=== PATIENT | male | born 2000 | race Caucasian/White ===

== ENCOUNTER 2024-11-15 14:00 | Emergency (ER) | payer BC ==
[2024-11-15 14:34] LABS: Sqamous Epithelial <5 /HPF (None Seen); Urine Culture Reflex Order NOT NEEDED; Urine Microscopic Reflex YN ORDER UMIC
[2024-11-15 17:32] LABS: Absolute Lymphocytes (CBC) 2.0 K/uL (0.7-4.9); Hematocrit 47.7 % (39.6-49.0); Hemoglobin 16.5 g/dL (13.6-17.9); MCH 28.5 pg (27.0-35.0); MCHC 34.6 g/dL (32.0-36.0); MCV 82.5 fL (80-100); MPV 7.8 fL (7.6-11.3); Nucleated RBC Absolute Count 0.0 (0-0); Nucleated Red Blood Cells % 0.1 % (0-0); RBC Red Blood Cell Count 5.78 M/uL (4.33-5.43); White Blood Count 7.90 thou/uL (4.3-10.9)
[2024-11-15 17:50] LABS: ALT/SGPT 52.0 U/L (16-61); AST/SGOT 27.0 U/L (15-37); Albumin 4.5 g/dL (3.4-5.0); Albumin/Globulin Ratio 1.3 (1.1-1.8); Alkaline Phosphatase 49.0 U/L (45-117); Anion Gap 10.6 mEq/L (5.0-15.0); BUN Blood Urea Nitrogen 13.0 mg/dL (7-18); Globulin 3.5 g/dL (2.3-3.5); Glucose Level 111.0 mg/dL (74-106); Potassium 3.6 mEq/L (3.5-5.1)
--- NOTE | 2024-11-15 19:17 | RAD REPORT ---
EXAMINATION: CT ABDOMEN AND PELVIS WITH CONTRAST CLINICAL INDICATION: Abdominal pain TECHNIQUE: CT abdomen and pelvis was performed, after the administration of 100 cc Isovue-300.. Sagit ashley and coronal reconstructions were obtained. One or more of the following dose reduction techniques were used: Automated exposure control, adjustment of the mA and kV according to patient si ze, and iterative reconstruction. Unless otherwise specified, incidental findings do not require dedicated imaging follow-up. [id number]. Oral contrast was not given which limits evaluation of bowel and appendix. COMPARISON: .None FINDINGS: Liver, spleen, pancreas, adrenals and kidneys appear unremarkable No evidence of diverticulitis. The appendix is normal caliber. No stranding within the adjacent fat. It does contain a 6 mm stone. The bladder is distended. Small umbilical hernia : IMPRESSION: Bladder distention 6 mm appendicolith. No evidence of acute appendicitis
[2024-11-15] MEDS ORDERED: DIAZEPAM 10 MG/2 ML INJ SYRINGE ONE ×3 (19:38→20:52)
[2024-11-15] MEDS ORDERED: LIDOCAINE VISCOUS 2% 10ML ORAL SOLN ONE (19:38)
--- NOTE | 2024-11-15 21:24 | EDPHYS ---
Physician Documentation [facility] Name: Dominic Lunsford Age: 24 yrs Sex: Male : 2000 Arrival Date: 11/15/2024 Time: 14:00 Bed 13 Private MD: ED Physician Vishnu Quiroz HPI: 11/15 19:29 This 24 yrs old Male presents to ER via Ambulatory with complaints of Urinary dr5 Retention. 19:29 Onset: The symptoms/episode began/occurred acutely. Patient is a 24-year-old male with dr5 no past with history coming in with urinary retention and burning with urination as well as hesitancy. Patient states that when he has intercourse several times a day this happens. Patient reports this been going on on and off for the past year. Patient went to urgent care yesterday and was prescribed antibiotics for urinary tract infection. Patient states that he is not able to void all the way.. Historical: - Allergies: 14:13 No Known Allergies; iw - Home Meds: 14:13 None [Active]; iw - PMHx: 14:13 None; iw - PSHx: 14:13 knee; iw - Immunization history:: Adult Immunizations not up to date. - Infectious Disease History:: Denies. - Social history:: Smoking status: Reported history of juuling and/or vaping. ROS: 19:29 Constitutional: as per hpi dr5 Exam: 19:29 Constitutional: This is a well developed, well nourished patient who is awake, alert, dr5 and in no acute distress. Head/Face: Normocephalic, atraumatic. Eyes: Pupils equal round and reactive to light, extra-ocular motions intact. Lids and lashes normal. Conjunctiva and sclera are non-icteric and not injected. Cornea within normal limits. Periorbital areas with no swelling, redness, or edema. Neck: Trachea midline, no thyromegaly or masses palpated, and no cervical lymphadenopathy. Supple, full range of motion without nuchal rigidity, or vertebral point tenderness. No Meningismus. Chest/axilla: Normal chest wall appearance and motion. Nontender with no deformity. No lesions are appreciated. Cardiovascular: Regular rate and rhythm with a normal S1 and S2. Normal PMI, no JVD. No pulse deficits. Respiratory: Lungs have equal breath sounds bilaterally, clear to auscultation. No rales, rhonchi or wheezes noted. No increased work of breathing, no retractions or nasal flaring. Abdomen/GI: Soft, non-tender, non-distended. Mild tenderness to suprapubic area. Back: No spinal tenderness. No costovertebral tenderness. Full range of motion. Skin: Warm, dry with normal turgor. Normal color with no rashes, no lesions, and no evidence of cellulitis. MS/ Extremity: Pulses equal, no cyanosis. Neurovascular intact. Full, normal range of motion. Neuro: Awake and alert, GCS 15, oriented to person, place, time, and situation. Cranial nerves II-XII grossly intact. Motor strength 5/5 in all extremities. Sensory grossly intact. Cerebellar exam normal. Normal gait. Vital Signs: 14:11 BP 157 / 101; Pulse 94; Resp 16; Pulse Ox 99% on R/A; Weight 102.06 kg; Height 5 ft. 10 iw in. ; 16:00 BP 141 / 74; Pulse 79; Resp 16; Pulse Ox 99% ; me1 17:00 BP 128 / 83; Pulse 82; Resp 15; Pulse Ox 98% ; me1 18:00 BP 134 / 66; Pulse 70; Resp 15; Pulse Ox 97% ; me1 19:00 BP 141 / 82; Pulse 65; Resp 15; Pulse Ox 99% ; me1 20:00 BP 136 / 87; Pulse 80; Resp 15; Pulse Ox 97% ; me1 21:00 BP 145 / 81; Pulse 92; Resp 16; Pulse Ox 99% ; me1 21:44 BP 137 / 91; Pulse 88; Resp 16; Pulse Ox 98% ; me1 11/16 00:56 BP 122 / 77; Pulse 84; Resp 18; Pulse Ox 99% on R/A; kd3 00:57 Temp 98.2(O); kd3 11/15 14:11 Body Mass Index 32.28 (102.06 kg, 177.8 cm) iw Procedures: 11/15 21:00 Performed Post Void Bladder Scanner. Bladder Scanner utilized after attempted void with dr5 500cc in bladder.. MDM: 14:06 Medical Screening Exam initiated dr5 20:57 Differential diagnosis: viral Infection, UTI, Urethral stricture, anemia, acute kidney dr5 injury, urinary tract infection, pyelonephritis. Data reviewed: vital signs, nurses notes, lab test result(s), CBC, white blood cell count, hemoglobin, hematocrit, platelets, electrolytes, sodium, potassium, chloride, serum bicarbonate, BUN, creatinine, serum glucose, urinalysis, radiologic studies, CT scan. Consideration of Admission/Observation Patient was admitted/placed on observation. I considered the following discharge prescriptions or medication management in the emergency department I discussed and recommended Over The Counter medications, Medications were administered in the Emergency Department. See MAR. Historians other than the Patient: Spouse/Significant Other: Significant other. Care significantly affected by the following Social Determinants of Health: Poor access to healthcare and/or lack of insurance, Poor access to transportation, Problems related to employment. Counseling: I had a detailed discussion with the patient and/or guardian regarding the historical points, exam findings, and any diagnostic results supporting the discharge/admit diagnosis, the presence of at least one elevated blood pressure reading (>120/80) during this emergency department visit, lab results, radiology results, the need to transfer to another facility, for higher level of care, [facility] does not immediately have the required specialist, We do not have urology service. Medication response: Valium. Special discussion: Based on the history and exam findings, there is no indication for further emergent testing or inpatient evaluation. I discussed with the patient/guardian the need to see the urologist for further evaluation of the symptoms. ED course: Attempted Akbar catheter on 3 different attempts with 16 Marshallese, 16 Marshallese coude, and 12 Marshallese coude with no success. Bladder scan postvoid revealed 500 cc. Will transfer patient for admission due to not having urology due to likely urethral stricture.. 21:07 Management of patient was discussed with the following: Custodial Supervisor: Urology (Dr. cristina Ernst with [facility]) who accepted patient. Pending hospitalist. 21:43 ED course: Spoke with hospitalist at [facility] - concerned urologist (Sujata) will dr5 not come in to take care of patient. Transfer center is connecting Sujata with hospitalist to discuss case.. 21:51 ED course: Patient was accepted to hospital.. cristina 11/15 14:17 Order name: UA Rfx Gordy Cult if indicated; Complete Time: 14:58 dr5 11/15 16:47 Order name: CBC with Diff; Complete Time: 17:46 dr5 11/15 16:47 Order name: CMP; Complete Time: 18:07 dr5 11/15 16:47 Order name: CT Abd/Pelvis - IV Contrast Only; Complete Time: 19:18 dr5 11/15 14:17 Order name: Bladder Scanner; Complete Time: 15:39 dr5 Administered Medications: 19:45 Drug: Diazepam IVP 5 mg IVP once Route: IVP; Site: right antecubital; vc1 21:43 Follow up: Response: No adverse reaction; Pain is decreased me1 19:48 Drug: Viscous Lidocaine Mucous Membrane Liquid (4 %) 4 ml Mucous Membrane once; to vc1 bedside {Note: to penis.} Route: Mucous Membrane; 21:43 Follow up: Response: No adverse reaction; Pain is decreased me1 20:56 Drug: Diazepam IVP 5 mg IVP once Route: IVP; Site: right antecubital; me1 21:43 Follow up: Response: No adverse reaction; Pain is decreased me1 Disposition Summary: 11/15/24 21:24 Transfer Ordered Notes: Transfer Location: [facility] dr5 Reason: Higher level of care dr5 Condition: Stable dr5 Problem: new dr5 Symptoms: have worsened dr5 Accepting Physician: [facility](11/16/24 00:57) kd3 Diagnosis - Other retention of urine dr5 Forms: - Medication Reconciliation Form dr5 - SBAR form dr5 Addendum: 11/17/2024 13:33 Co-signature as Attending Physician, Vishnu Quiroz MD I agree with the assessment and c ferraro plan of care. Signatures: Dispatcher [employer] Vishnu Baptiste MD MD cha Williams, Irene, RN RN iw Doucette, Kyli, RN RN kd3 Eve Potter RN RN vc1 Noemi Kern RN RN me1 Don Madrid, CERTIFIED REAL ESTATE APPRAISER-C CERTIFIED REAL ESTATE APPRAISER-Cdr5 Corrections: (The following items were deleted from the chart) 11/15 21:44 20:57 ED course: Attempted Akbar catheter on 3 different attempts with 16 Marshallese, 16 dr5 Marshallese coud, and 12 Marshallese coud with no success. Bladder scan postvoid revealed 500 cc. Will transfer patient for admission due to not having urology due to likely urethral stricture.. dr5 21:44 21:43 ED course: Spoke with hospitalist at [facility] - concerned urologist (Sujata) dr5 will not come in to take care of patient. Transfer center is connecting Sujata with hospitalist.. dr5 11/16 00:57 11/15 21:24 [facility] dr5 kd3
--- NOTE | 2024-11-15 21:24 | ER ---
Nurse's Notes [facility] Name: Dominic Lunsford Age: 24 yrs Sex: Male : 2000 Arrival Date: 11/15/2024 Time: 14:00 Bed 13 Private MD: Diagnosis: Other retention of urine Presentation: 11/15 14:11 Chief complaint: Patient states: has been having burning with urination on and off for iw past year , it seems worse after intercourse, this episode started a couple days ago , was seen at urgent care yesterday , started on cipro , no pain in kidneys. Coronavirus screen: At this time, the client does not indicate any symptoms associated with coronavirus-19. Ebola Screen: No symptoms or risks identified at this time. Initial Sepsis Screen: Does the patient meet any 2 criteria? HR > 90 bpm. Does the patient have a suspected source of infection? No. Patient's initial sepsis screen is negative. Risk Assessment: Do you want to hurt yourself or someone else? Patient reports no desire to harm self or others. 14:11 Method Of Arrival: Ambulatory iw 14:11 Acuity: JOHANNE 3 iw 11/16 00:55 Onset of symptoms was November 15, 2024. kd3 Historical: - Allergies: 11/15 14:13 No Known Allergies; iw - Home Meds: 14:13 None [Active]; iw - PMHx: 14:13 None; iw - PSHx: 14:13 knee; iw - Immunization history:: Adult Immunizations not up to date. - Infectious Disease History:: Denies. - Social history:: Smoking status: Reported history of juuling and/or vaping. Screenin:40 [facility] ED Fall Risk Assessment (Adult) History of falling in the last 3 months, me1 including since admission No falls in past 3 months (0 pts) Confusion or Disorientation No (0 pts) Intoxicated or Sedated No (0 pts) Impaired Gait No (0 pts) Mobility Assist Device Used No (0 pt) Altered Elimination No (0 pt) Score/Fall Risk Level 0 - 2 = Low Risk Maintained a safe environment, Provided non-skid footwear, Hourly rounding (assess needs \T\ fall precautionary measures) done. Abuse screen: Denies threats or abuse. Nutritional screening: No deficits noted. Tuberculosis screening: No symptoms or risk factors identified. Assessment: 15:40 General: Appears uncomfortable, well groomed, well developed, well nourished, Behavior me1 is calm, cooperative, appropriate for age, Reports has been having burning with urination on and off for past year , it seems worse after intercourse, this episode started a couple days ago , was seen at urgent care yesterday , started on cipro , no pain in kidneys. Pain: Complains of pain in suprapubic area Pain does not radiate. Pain currently is 6 out of 10 on a pain scale. Quality of pain is described as pressure, Pain began gradually, Is continuous. Neuro: Level of Consciousness is awake, alert, obeys commands, Oriented to person, place, time, situation, Appropriate for age. Cardiovascular: Patient's skin is warm and dry. Respiratory: Airway is patent Respiratory effort is even, unlabored, Respiratory pattern is regular, symmetrical. GI: No signs and/or symptoms were reported involving the gastrointestinal system. : Reports burning with urination, inability to void, urinary frequency, since a few days ago. On and off for a year. EENT: No signs and/or symptoms were reported regarding the EENT system. Derm: Skin is intact, is healthy with good turgor, Skin is normal. Musculoskeletal: No signs and/or symptoms reported regarding the musculoskeletal system. 22:49 General: Per previous nurse, multiple nurses have attempted Akbar insertions and kd3 failed. Pt to be transferred due to failed Akbar insertions. . Vital Signs: 14:11 BP 157 / 101; Pulse 94; Resp 16; Pulse Ox 99% on R/A; Weight 102.06 kg; Height 5 ft. 10 iw in. ; 16:00 BP 141 / 74; Pulse 79; Resp 16; Pulse Ox 99% ; me1 17:00 BP 128 / 83; Pulse 82; Resp 15; Pulse Ox 98% ; me1 18:00 BP 134 / 66; Pulse 70; Resp 15; Pulse Ox 97% ; me1 19:00 BP 141 / 82; Pulse 65; Resp 15; Pulse Ox 99% ; me1 20:00 BP 136 / 87; Pulse 80; Resp 15; Pulse Ox 97% ; me1 21:00 BP 145 / 81; Pulse 92; Resp 16; Pulse Ox 99% ; me1 21:44 BP 137 / 91; Pulse 88; Resp 16; Pulse Ox 98% ; me1 11/16 00:56 BP 122 / 77; Pulse 84; Resp 18; Pulse Ox 99% on R/A; kd3 00:57 Temp 98.2(O); kd3 11/15 14:11 Body Mass Index 32.28 (102.06 kg, 177.8 cm) iw ED Course: 11/15 14:06 Patient arrived in ED. cj3 14:06 [facility] [place] [facility] 14:06 Vishnu Quiroz MD is Attending Physician. dr5 14:13 Triage completed. iw 14:14 Arm band placed on. iw 15:39 Bladder scan completed. 507 mL. iw 15:40 Patient has correct armband on for positive identification. Bed in low position. Call me1 light in reach. Side rails up X2. Provided Education on: POC. Verbalized understanding.. Client placed on continuous cardiac and pulse oximetry monitoring. NIBP monitoring applied. Pulse ox on. NIBP on. 15:40 No provider procedures requiring assistance completed. me1 15:57 Noemi Kern, RN is Primary Nurse. me1 17:07 Radiology exam delayed due to lab results not completed at this time. IV insertion nj attempt and/or patient not having appropriate IV at this time. 17:25 CMP Sent. 6 17:25 CBC with Diff Sent. 6 17:25 Initial lab(s) drawn, by ar, sent to lab. Inserted saline lock: 20 gauge in right bc6 forearm, using aseptic technique. Blood collected. Flushed with 10 mL NS. 18:03 CT Abd/Pelvis - IV Contrast Only In Process Unspecified. EDMS 21:50 initiated transfer with Keagan Bermudez \T\2038. Pt was accepted to [facility] \T\2149. km f Accepting Dr. Angela Barba \T\2142. Pt will go to room 519. EMS delay due to multiple transfers. 11/16 00:55 Patient transferred, IV remains in place. kd3 Administered Medications: 11/15 19:45 Drug: Diazepam IVP 5 mg IVP once Route: IVP; Site: right antecubital; vc1 21:43 Follow up: Response: No adverse reaction; Pain is decreased ar1 19:48 Drug: Viscous Lidocaine Mucous Membrane Liquid (4 %) 4 ml Mucous Membrane once; to vc1 bedside {Note: to penis.} Route: Mucous Membrane; 21:43 Follow up: Response: No adverse reaction; Pain is decreased me1 20:56 Drug: Diazepam IVP 5 mg IVP once Route: IVP; Site: right antecubital; me1 21:43 Follow up: Response: No adverse reaction; Pain is decreased me1 Medication: 15:40 VIS not applicable for this client. me1 Outcome: 21:24 ER care complete, transfer ordered by . dr5 11/16 00:55 Transferred by ground EMS to [facility], [facility], kd3 Condition: stable Discharge instructions given to patient, Instructed on the need for transfer, Demonstrated understanding of instructions, 00:57 Patient left the ED. kd3 Signatures: Dispatcher [employer] EDRox Chisholm RN RN Pino, Chantel Oscar RN RN kd3 Eve Potter RN RN vc1 Ann Caballero6 Noemi Kern RN RN me1 Patria Cullen km Don Madrid, SUGAR REFINERY SUPERVISOR-C SUGAR REFINERY SUPERVISOR-Cdr5 Jessica Johnson cj3 Corrections: (The following items were deleted from the chart) 11/15 16:20 14:11 Chief complaint: Patient states: has been having burning with urination on and me1 off for past year , it seems worse after intercourse, this episode started a couple days ago , was seen at urgent care yesterday , started on cipro , no pain in kidneys iw
[2024-11-16 10:52] VITALS: BP 122/77; O2SAT 99
[2024-11-16 10:53] VITALS: TEMP 98.2
== END 2024-11-16 00:57 | disposition short-term general hospital (02) ==
LOC: ER 14:00
DX: R33.8 Other retention of urine (principal)
CPT/HCPCS: 85025; 81001; 36415; 80053; 74177; 96374; 99285; Q9967; J3360 ×3